=== PATIENT | female | born 1995 | race Caucasian/White ===

== ENCOUNTER 2018-10-25 19:21 | Outpatient (CLI) | payer OTHER ==
[~2018-10-25] VITALS: Ht 165.1 cm; Wt 89.4 kg
[2018-10-25 19:41] VITALS: BP 119/73; PULSE 100; RESP 18; Ht 165.1 cm; Wt 89.4 kg
[2018-10-25] MEDS ORDERED: PREN1TAB64 PO (19:43)
[2018-10-25] MEDS ORDERED: ACETAMINOPHEN 325 MG TAB PO ONE (20:30)
[2018-10-25] MEDS ORDERED: AL HYDROX/MG HYDROX/SIMETH 30 ML CUP PO ONE (22:30)
--- NOTE | 2018-10-26 02:19 | PN ---
Triage Information Date/Time October 26, 2018 Reason for visit: Uterine contractions Weeks of Gestation 35w 2d /Para 2/0 Diabetes: none Hypertention: none Additional information Pt came inc/o contractions and lower back pain since 1800. No bleeding or leaking.+FM. PMHx: none. PSHx: none. NKDA. Objective Vital Signs Date Temp Pulse Resp B/P (MAP) Pulse Ox O2 O2 Flow FiO2 Time Delivery Rate 10/25/18 99.8 100 18 119/73 97 Room Air 19:41 (88) Heart Rate: 130's Heart Rate Comments Accels to 150 BPM. No decels. Contractions: 6-10 Minutes Apart Results/Medications Result Diagram: 10/25/18225210/25/182252 Results 24 hrs Laboratory Tests Test 10/25/18 22:53 10/25/18 23:00 White Blood Count 9.9 Red Blood Count 4.21 Hemoglobin 10.7 L Hematocrit 33.2 L Mean Corpuscular Volume 78.9 L Mean Corpuscular Hemoglobin 25.4 L Mean Corpuscular Hemoglobin Concent 32.2 Red Cell Distribution Width 15.8 H Platelet Count 183 Mean Platelet Volume 9.9 Immature Granulocytes % 1.200 H Neutrophils % 87.3 H Lymphocytes % 8.1 L Monocytes % 3.3 Eosinophils % 0.0 Basophils % 0.1 Nucleated Red Blood Cells % 0.0 Immature Granulocytes # 0.120 H Neutrophils # 8.6 H Lymphocytes # 0.8 Monocytes # 0.3 Eosinophils # 0.0 Basophils # 0.0 Nucleated Red Blood Cells # 0.0 Sodium Level 134 L Potassium Level 3.5 Chloride Level 105 Carbon Dioxide Level 22 Anion Gap 7 Blood Urea Nitrogen 6 L Creatinine 0.52 Est Glomerular Filtrat Rate mL/min > 60 Glucose Level 104 Uric Acid 4.6 Calcium Level 9.1 Total Bilirubin 0.4 Direct Bilirubin 0.00 Indirect Bilirubin 0.4 Aspartate Amino Transf (AST/SGOT) 16 Alanine Aminotransferase (ALT/SGPT) 13 Alkaline Phosphatase 137 H Total Protein 6.2 Albumin 2.9 L Globulin 3.30 H Albumin/Globulin Ratio 0.87 Urine Color DAVID Urine Clarity CLOUDY A Urine pH 6.0 Urine Specific [place] 1.026 Urine Ketones NEGATIVE Urine Nitrite NEGATIVE Urine Bilirubin NEGATIVE Urine Urobilinogen 2+ H Urine Leukocyte Esterase 3+ H Urine Microscopic RBC 22 H Urine Microscopic WBC 131 H Urine Squamous Epithelial Cells FEW Urine Calcium Oxalate Crystals FEW A Urine Bacteria FEW A Urine Mucus FEW A Urine Yeast (Budding) FEW A Urine Hemoglobin NEGATIVE Urine Glucose NEGATIVE Urine Total Protein 1+ H Imaging Results BPP 12/30 with an BABATUNDE of 14.7 cm. VTX. EFW 2778 grams Disposition: Discharge Assessment/Plan A: IUP at 35 weeks False labor. P: Pt's initial contractions abated with p.o. hydration and Tylenol. Pt was d/c'ed home with PTL precautions. ESTEFANI MORE MD Oct 26, 2018 02:19
--- NOTE | 2018-10-26 03:22 | TRIAGE ---
OB Triage Datetime Report Generated by CPN: 10/26/2018 03:22 Datetime: 10/26/2018 02:08 Stage of : OB Triage Labor Evaluation Frequency: x1 Monitor Mode: External Resting Tone [place]: Relaxed Heart Rate FHR Baseline Rate: 115 Monitor Mode: External US Variability: Moderate 6-25 bpm Accelerations: 15X15 Decelerations: None Category: Category I Pain Assessment Pain Scale: 0 Pain Presence: None/Denies Pain Type: N/A Pain Relief Measures: Comfort Measures Datetime: 10/26/2018 01:52 Stage of : OB Triage Datetime: 10/26/2018 01:05 Monitor Mode: External US Datetime: 10/26/2018 00:31 Monitor Mode: External US Datetime: 10/25/2018 22:45 Stage of : OB Triage Labor Evaluation Frequency: Occasional Monitor Mode: External Resting Tone [place]: Relaxed Heart Rate FHR Baseline Rate: 130 Monitor Mode: External US Variability: Moderate 6-25 bpm Accelerations: 15X15 Decelerations: None Category: Category I Pain Assessment Pain Scale: 0 Pain Presence: None/Denies Pain Type: N/A Pain Relief Measures: Comfort Measures Datetime: 10/25/2018 21:40 Stage of : OB Triage Labor Evaluation Frequency: Occasional Monitor Mode: External Resting Tone [place]: Relaxed Heart Rate FHR Baseline Rate: 140 Monitor Mode: External US Variability: Moderate 6-25 bpm Accelerations: 15X15 Decelerations: None Category: Category I Datetime: 10/25/2018 20:43 Pain Assessment Pain Scale: 10 Pain Presence: Constant Pain Type: Ache Pain Location: Head Pain Relief Measures: Pain Medication Given; Comfort Measures Datetime: 10/25/2018 20:39 Stage of : OB Triage Labor Evaluation Frequency: Occasional Monitor Mode: External Pattern: Normal: <= 5 Contractions in 10 Minutes Resting Tone [place]: Relaxed Heart Rate FHR Baseline Rate: 145 Monitor Mode: External US Variability: Moderate 6-25 bpm Accelerations: 15X15 Decelerations: None Category: Category I Datetime: 10/25/2018 20:00 Stage of : OB Triage Pain Presence: Constant Pain Type: Ache Pain Location: Head Pain Goal: 10 Pain Relief Measures: Comfort Measures Datetime: 10/25/2018 19:38 Stage of : OB Triage Assessment Type: Triage Maternal Assessment Level of Consciousness: Fully Conscious DTR's/Clonus: DTRs 2+; No Clonus Headache: Denies Blurred Vision: No Respiratory Effort: Unlabored; Regular Rhythm; Equal Expansion Breath Sounds, Left: Clear and Equal Breath Sounds, Right: Clear and Equal Nausea/Vomiting: Denies RUQ Epigastric Pain: Denies Lower Extremities Edema: None Degree: None Upper Extremities Edema: None Degree: None Facial Edema: None Temperature Route: Oral Fall Risk Assessment History of Falling: (0) No Secondary Diagnosis: (0) No Ambulatory Aid: (0) Bedrest/Nurse Assist IV Therapy: (0) No Gait: (0) Normal/Bedrest/Immobile Mental Status: (0) Oriented to Own Ability Fall Score: 0 Fall Risk Score Definition: No Risk: No action required Monitor Mode: External Monitor Mode: External US Pain Assessment Pain Scale: 5 Pain Presence: Intermittent Pain Type: Contraction Pain Location: Abdomen; Back Pain Goal: 0 Pain Relief Measures: Comfort Measures Datetime: 10/25/2018 19:37 Time of Arrival: 10/25/2018 19:15 EGA: 35.1 Arrived By: Wheelchair Arrived From: Emergency Dept Movement: Present Contractions: Regular Time Contractions Began: 10/25/2018 18:30 Contractions: 2-3 Rupture of Membranes: Denies Vaginal Bleeding: None Vaginal Discharge: Denies Recent Sexual Intercouse: Denies Abdominal Trauma: Not Applicable Patient Complaints: Contractions; Back Pain Time Provider Notified: 10/25/2018 20:22 Provider Notified: Aric Initial Plan: EFM, VS
== END 2018-10-26 02:25 | disposition home or self-care (01) ==
LOC: L-D 19:21 → OBT 19:21
PROVIDERS: ATTEND Obstetrics & Gynecology
DX: O47.03 False labor before 37 completed weeks of gestation, third trimester (principal); Z3A.35 35 weeks gestation of pregnancy
CPT/HCPCS: 76815; 76818; 80053; 81001; 84560; 85025; Z7500; Z7610; G0463